=== PATIENT | male | born 1955 ===

== ENCOUNTER 2021-02-03 21:04 | Emergency (ER) | payer OTHER, MEDICAID ==
[2021-02-03] MEDS ORDERED: Morphine 10 MG/ML SDV IM ONE (21:38)
[2021-02-03] MEDS ORDERED: Take Home: Acetaminophen/oxyCODONE 325-5 MG, 2 Tab Pack PO ONE (22:24)
--- NOTE | 2021-02-03 22:28 | EDM.PDOC ---
ED HPI GENERAL MEDICAL PROBLEM - General Chief Complaint: Lower Extremity Injury/Pain Stated Complaint: ankle injury Time Seen by Provider: 02/03/21 21:30 Source of Information: Reports: Patient History Limitations: Reports: No Limitations - History of Present Illness INITIAL COMMENTS - FREE TEXT/NARRATIVE: Jemal is a 65 yo male who presents to the ED via private vehicle after falling outside a vehicle. States he was in [place] and getting ready to go back to [place] where he resides. States his leg got underneath him awkwardly. He states he had his nieces give him a ride and planned on going to [place] and checking in to the hospital at assisted living as he has dialysis in the morning. States there is a place for him to stay in the hospital. States it started to throb a lot on the way and decided to stop in [place] for pain relief. States he was bleeding from his toe as well, somehow his shoe came off and cut the bottom of his toe. Patient has prior history of fracture to the right distal tibia with prior ORIF and hardware removal as well. Tetanus status addressed and up to date. - Related Data Allergies Allergy/AdvReac Type Severity Reaction Status Date / Time Penicillins AdvReac Rash Verified 06/26/19 19:48 Home Meds: Home Meds Acetaminophen 325 mg PO Q6H PRN 09/22/18 [History] Darbepoetin Nikhil [Aranesp] 25 mcg IJ WEEKLY 09/22/18 [History] Ethacrynic Acid 75 mg PO BID 09/22/18 [History] Insulin Lispro [Humalog] 10 unit SQ BID 09/22/18 [History] Insulin Lispro [Humalog] See Protocol SQ BEDTIME 09/22/18 [History] Metoprolol Succinate [Toprol Xl] 200 mg PO DAILY 09/22/18 [History] Pregabalin [Lyrica] 75 mg PO BID 09/22/18 [History] amLODIPine [Norvasc] 10 mg PO DAILY 09/22/18 [History] atorvaSTATin [Lipitor] 20 mg PO BEDTIME 09/22/18 [History] Past Medical History - Past Health History Medical/Surgical History: Denies Medical/Surgical History HEENT History: Reports: Impaired Vision, Other (See Below) Other HEENT History: wears glasses Cardiovascular History: Reports: High Cholesterol, Hypertension Respiratory History: Reports: Asthma Gastrointestinal History: Reports: None Other Gastrointestinal History: feeling gassy, like he has to belch and can't Genitourinary History: Reports: Dialysis, Diabetic Nephropathy Musculoskeletal History: Reports: Fracture Neurological History: Reports: Neuropathy, Diabetic Psychiatric History: Reports: Addiction Endocrine/Metabolic History: Reports: Diabetes, Type II Immunologic History: Reports: None Oncologic (Cancer) History: Reports: None Dermatologic History: Reports: None - Infectious Disease History Infectious Disease History: Reports: None - Past Surgical History Head Surgeries/Procedures: Reports: None HEENT Surgical History: Reports: None Cardiovascular Surgical History: Reports: Vascular Surgery Respiratory Surgical History: Reports: None Musculoskeletal Surgical History: Reports: ORIF Social & Family History - Family History Family Medical History: No Pertinent Family History - Caffeine Use Caffeine Use: Reports: Coffee - Living Situation & Occupation Living situation: Reports: with Family Occupation: Disabled Review of Systems - Review of Systems Review Of Systems: Comprehensive ROS is negative, except as noted in HPI. ED EXAM, GENERAL - Physical Exam Exam: See Below Exam Limited By: No Limitations General Appearance: Alert, Mild Distress Extremities: Pedal Edema, Leg Pain, Limited Range of Motion (unable to plantar and dorsiflex the right foot. Pain on palpation to distal fibula/tibia. ) Neurological: Alert, Oriented, Normal Cognition Psychiatric: Normal Affect, Normal Mood Skin Exam: Wound/Incision (3cm laceration to the bottom base of the 1st toe. ) ED TRAUMA EXTREMITY PROCEDURES - Laceration/Wound Repair Right Distal Toe - Great Lac/Wound Length In cm: 3 Appearance: Superficial, Linear Anesthetic Type: Local Local Anesthesia - Lidocaine (Xylocaine): 1% Plain Local Anesthetic Volume: 2cc Skin Prep: Chlorhexidine (Hibiciens), Providone-Iodine (Betadine), Sterile Drape Exploration/Debridement/Repair: Wound Explored, In a Bloodless Field, Explored to Base Closed With: Sutures Suture Size: 5-0 # of Sutures: 5 Suture Type: Prolene, Interrupted, Simple Sterile Dressing Applied: Nurse Tetanus Status Addressed: Yes Complications: No - Splinting Right Lower Extremity Splint Site: right lower extremity Pre-Procedure NV Status: Normal Post-Procedure NV Status: Normal Splint Material: Fiberglass Splint Design: Posterior Applied & Form Fitted By: Provider Provider Post-Splint Application NV Check: NV Status Normal, Good Position Complications: No Course - Orders/Labs/Meds Orders: Active Orders 24 hr Category Date Time Status Ankle Min 3V Rt [CR] Stat Exams 02/03/21 21:23 Taken Meds: Medications Discontinued Medications Generic Name Dose Route Start Last Admin Trade Name Lorena PRN Reason Stop Dose Admin Lidocaine HCl 5 ml 02/03/21 21:46 02/03/21 21:55 Lidocaine 1% 5 Ml Sdv INJECT 02/03/21 21:47 5 ml ONETIME ONE Administration Morphine Sulfate 6 mg 02/03/21 21:38 02/03/21 21:44 Morphine 10 Mg/Ml Sdv IM 02/03/21 21:39 6 mg ONETIME ONE Administration Departure - Departure Time of Disposition: 22:33 Disposition: Home, Self-Care 01 Clinical Impression: Fracture of tibia AND fibula - Discharge Information Instructions: Cast or Splint Care, Adult, [id number], Tibial and Fibular Fractures Additional Instructions: 1) Posterior splint applied for fracture, will need to follow up with orthope dics in [place] this week. 2) No weight bearing, recommend wheel chair only as unsteady on crutches 3) Percocet 5/325 - 1 tablet every 6 hours as needed for pain 4) 5 sutures placed to bottom of right big toe. Closely watch for any signs of infection. 5) Sutures will need to come out in 10-14 days. - Problem List & Annotations (1) Laceration of toe SNOMED Code(s): 384664771 Code(s): S91.119A - LACERATION W/O FB OF UNSP TOE W/O DAMAGE TO NAIL, INIT Status: Acute Qualifiers: Encounter type: initial encounter Toe: great toe Damage to nail status: without damage Foreign body presence: without foreign body Laterality: right Qualified Code(s): S91.111A - Laceration without foreign body of right great toe without damage to nail, initial encounter (2) Fracture of tibia AND fibula SNOMED Code(s): 654968850 Code(s): S82.209A - UNSP FRACTURE OF SHAFT OF UNSP TIBIA, INIT FOR CLOS FX; S82.409A - UNSP FRACTURE OF SHAFT OF UNSP FIBULA, INIT FOR CLOS FX Status: Acute - My Orders Last 24 Hours: My Active Orders 02/03/21 21:23 Ankle Min 3V Rt [CR] Stat - Assessment/Plan Last 24 Hours: My Active Orders 02/03/21 21:23 Ankle Min 3V Rt [CR] Stat Plan: X-ray of the the right ankle does show non displaced tibia/fibula fracture of the right foot. Posterior splint applied after closure of laceration to bottom of right great toe. Patient states he is going into assisted living in [place] where he has dialysis in the morning. Niece will be transporting him. Patient given initially 6mg of Morphine with minimal relief of discomfort. After splinting, pain did significantly improve. Patient given 1mg of Dilaudid at discharge. Will send home with Percocet, take home pack, total of 4 tablets. Patient is advised to follow up with orthopedics this week, which he will discuss with his doctor tomorrow. I advised if he doesn't go in assisted living to have someone with him, niece, to help him as he is advised to refrain from any weight bearing. Blood pressure was elevated in the ED, which he admits to uncontrolled hypertension. Advise following up with his primary for recheck of his blood pressure as well. See nurses notes for complete list of vital signs.
[2021-02-03] MEDS ORDERED: HYDROmorphone 1 MG/ML Syringe IM ONE (22:34)
[2021-02-03 23:54] VITALS: PULSE 74
[2021-02-03 23:55] VITALS: BP 178/88
== END 2021-02-03 22:52 | disposition home or self-care (01) ==
LOC: CC.ED 21:04
DX: S82.391A Other fracture of lower end of right tibia, initial encounter for closed fracture (principal); S82.831A Other fracture of upper and lower end of right fibula, initial encounter for closed fracture; S91.111A Laceration without foreign body of right great toe without damage to nail, initial encounter; E78.00 Pure hypercholesterolemia, unspecified; I10 Essential (primary) hypertension; E11.40 Type 2 diabetes mellitus with diabetic neuropathy, unspecified; Z79.4 Long term (current) use of insulin; Z88.0 Allergy status to penicillin; Z79.899 Other long term (current) drug therapy; V89.9XXA Person injured in unspecified vehicle accident, initial encounter; Y92.410 Unspecified street and highway as the place of occurrence of the external cause
CPT/HCPCS: 12002; 29515; 73610; 96372; 99283; A9270; J1170; J2270